=== PATIENT | female | born 1985 | race Native Hawaiian/Other Pacific Islander ===

== ENCOUNTER 2016-12-02 16:58 | Emergency (ER) | payer OTHER | END 2016-12-02 18:20 | disposition home or self-care (01) | LOC: ED 16:58 | DX: S61.412A Laceration without foreign body of left hand, initial encounter (principal); W26.0XXA Contact with knife, initial encounter; Y99.0 Civilian activity done for income or pay; Z87.891 Personal history of nicotine dependence; Z88.5 Allergy status to narcotic agent ==